=== PATIENT | female | born 1990 | race Caucasian/White ===

== ENCOUNTER 2019-04-08 11:22 | Emergency (ER) | payer OTHER ==
[~2019-04-08] VITALS: Ht 162.6 cm; Wt 124.7 kg
[~2019-04-08 11:22] MED LIST: LORTAB 5-500 T1 EAC1 PO; ZARAH TABLET1 EACH
[2019-04-08] MEDS ORDERED: WELLBUTRIN 100100 MG PO (11:42)
[2019-04-08] MEDS ORDERED: CLARITIN10 M3 PO (11:43)
[2019-04-08] MEDS ORDERED: BIOTIN-D1 GM PO (11:43)
[2019-04-08] MEDS ORDERED: OMEPRAZOLE 20 M20 M1 PO (11:43)
[2019-04-08] MEDS ORDERED: BLISOVI 24 FE1 EACH PO (11:43)
[2019-04-08 12:54] LABS: INFLUENZA B ANTIGEN Negative (Negative)
[2019-04-08 12:56] LABS: ABSOLUTE EOSINOPHILS 0.1 thou/uL (0.0-0.7); ABSOLUTE LYMPHOCYTES 0.6 thou/uL (0.8-5.3); ABSOLUTE MONOCYTES 0.6 thou/uL (0.0-1.2); ABSOLUTE NEUTROPHILS 7.8 thou/uL (1.6-8.1); BASOPHILS 0.4 %; EOSINOPHILS 1.2 %; HEMATOCRIT 45.2 % (37.0-47.0); HEMOGLOBIN 15.6 gm/dL (12.0-15.0); MCH 29.7 pg (26.0-34.0); MCHC 34.6 g/dL (28.0-37.0); MONOCYTES 6.6 %; MPV 7.4 fl. (7.2-11.1); NUCLEATED RBCS 0 /100WBC; PLATELET COUNT* 263 thou/uL (150-400); POLYS 84.8 %; RBC 5.25 mil/uL (4.20-5.00); RDW-CV 12.7 % (10.5-14.5); WBC 9.2 thou/uL (4.0-11.0)
[2019-04-08 13:07] LABS: CALCIUM 8.4 mg/dL (8.5-10.1); CREATININE 0.8 mg/dL (0.6-1.3); POTASSIUM 3.8 mmol/L (3.5-5.1)
[2019-04-08 13:11] LABS: ALBUMIN 3.7 g/dL (3.4-5.0); TOTAL BILIRUBIN 0.9 mg/dL (<0.1-1.0); TOTAL PROTEIN 8.1 g/dL (6.4-8.2)
[2019-04-08 14:00] LABS: URINE BILIRUBIN NEGATIVE (Negative); URINE BLOOD 1+ (Negative); URINE CLARITY CLEAR; URINE COLOR YELLOW; URINE GLUCOSE-RANDOM NEGATIVE (Negative); URINE KETONES NEGATIVE (Negative); URINE LEUKOCYTES-REFLEX NEGATIVE (Negative); URINE NITRITE-REFLEX NEGATIVE (Negative); URINE PROTEIN NEGATIVE (Negative); URINE UROBILINOGEN 0.2 E.U./dl (0.2-1.0)
[2019-04-08 14:18] LABS: BACTERIA-REFLEX 1-9 Few /HPF (None Seen); CASTS None Seen /LPF (None Seen); CRYSTALS None Seen /LPF (None Seen); MUCUS None Seen strn/LPF (None Seen); SQUAMOUS 4-10 Moderate /LPF (0-3); URINE RBC 3-10 Few /HPF (0-2); URINE WBC-REFLEX 0-5 Rare /HPF (0-5)
[2019-04-08] MEDS ORDERED: TYLENOL WITH CO1 TA1 PO (14:35)
[2019-04-08] MEDS ORDERED: TAMIFLU75 MG PO (14:35)
[2019-04-08] MEDS ORDERED: ONDANSETRON HCL4 M2 PO (14:35)
[2019-04-08 15:00] VITALS: BP 152/92
== END 2019-04-08 15:02 | disposition home or self-care (01) ==
LOC: M.ERS 11:22
PROVIDERS: Nurse Practitioner Family
DX: J10.1 Influenza due to other identified influenza virus with other respiratory manifestations (principal); Z98.890 Other specified postprocedural states